=== PATIENT | female | born 1965 | race Caucasian/White ===

== ENCOUNTER 2019-02-02 08:38 | Day surgery (SDC) | payer OTHER ==
[2019-02-02] MEDS ORDERED: LACTATED RINGER'S 1,000 ML IV (10:00)
[2019-02-02] MEDS ORDERED: NEOMYC/POLYMYX/BACIT 30 GM OINT (11:08)
[2019-02-02] MEDS ORDERED: ONDANSETRON 4 MG INJ (11:13)
[2019-02-02] MEDS ORDERED: PROPOFOL 20 ML (11:13)
[2019-02-02] MEDS ORDERED: CEFAZOLIN 1 GM INJ (11:13)
[2019-02-02] MEDS ORDERED: KETOROLAC 30 MG INJ (11:13)
[2019-02-02] MEDS ORDERED: MIDAZOLAM 1 MG/ML 2 ML INJ (11:13)
[2019-02-02] MEDS ORDERED: FENTAnyl 50 MCG/ML VIAL (11:14)
[2019-02-02] MEDS: ROPIVACAINE 0.5 % 30 ML VIAL (12:34)
[2019-02-02] MEDS: POLYMYXIN/BACITRACIN 1L IRRIG (12:35)
[2019-02-02] MEDS ORDERED: HYDROmorphONE 1 MG/5 ML IV SYRINGE IV (13:00)
[2019-02-02] MEDS ORDERED: FENTAnyl 50 MCG/ML VIAL IV (13:00)
[2019-02-02] MEDS ORDERED: KETOROLAC 30 MG INJ IV (13:00)
[2019-02-02] MEDS ORDERED: OXYCODONE/ACETAMINOPHEN (5/325) TAB PO (13:00)
[2019-02-02] MEDS ORDERED: morphine 2 MG INJ IV (13:00)
[2019-02-02] MEDS ORDERED: ONDANSETRON 4 MG INJ IV (13:00)
== END 2019-02-02 14:45 | disposition home or self-care (01) ==
LOC: SDS 08:38
DX: D16.31 Benign neoplasm of short bones of right lower limb (principal); M77.41 Metatarsalgia, right foot; L85.1 Acquired keratosis [keratoderma] palmaris et plantaris
CPT/HCPCS: 28104; 73630; 82306